=== PATIENT | male | born 2000 | race Caucasian/White ===

== ENCOUNTER 2019-06-10 00:16 | Inpatient (IN) ==
[2019-06-10] MEDS ORDERED: NS 1,000 ML ONE (00:30)
[2019-06-10] MEDS ORDERED: NS 1,000 ML IV ONE ×3 (00:33→02:14)
[2019-06-10] MEDS ORDERED: HUMULIN R IV ONE ×3 (00:35→04:18)
[2019-06-10 00:45] LABS: BE -17.3 mmoll (-3.0-3.0); BLOOD TYPE ARTERIAL; HCO3-(ACT) 11.4 mmoll (20.0-26.0); METHB 1.2 % (0.0-1.5); O2(CT) 22.6 mL/dL (15.0-23.0); O2HB 95.7 % (95.0-99.0); PCO2(98.6) 22 mmHg (35-45); PO2(98.6) 110 mmHg (60-100); SAMPLE BLOOD; SAO2 98.8 % (95.0-100.0); THB 16.7 g/dL (11.5-17.4)
[2019-06-10 00:46] LABS: URINE SOURCE CLEAN CATCH
[2019-06-10 00:47] LABS: ALLEN TEST NO; MODALITY ROOM AIR
[2019-06-10 00:48] LABS: BASO# 0.06 X1000 (0.0-0.2); BASO% 0.5 % (0.0-0.8); EOS# 0.07 X1000 (0.0-0.7); EOS% 0.5 % (0.0-10.0); HEMATOCRIT 46.2 % (42.0-52.0); HEMOGLOBIN 16.1 g/dL (14.0-18.0); IMM GRAN# 0.06 X1000 (0.0-0.04); IMM GRAN% 0.5 % (0.0-0.5); LYMPH# 3.92 X1000 (1.2-3.4); LYMPH% 30.5 % (20.5-51.1); MCH 29.6 PG (27-31); MCHC 34.8 g/dL (33-37); MCV 84.9 FL (81-99); MONO# 0.75 X1000 (0.11-0.59); MONO% 5.8 % (1.7-9.3); MPV 9.3 FL (7.4-10.4); NEUT% 62.2 % (42.2-75.2); PLT 397 X1000 (130-400); RBC 5.44 XMIL (4.7-6.1); RDW 11.9 % (11.5-14.5); WBC 12.86 X1000 (4.8-10.8)
[2019-06-10 00:49] LABS: BILIRUBIN URINE NEGATIVE (NEGATIVE); BLOOD URINE NEGATIVE (NEGATIVE); COLOR STRAW; GLUCOSE URINE >1000 mg/dL (NEGATIVE); KETONE URINE >150 mg/dL (NEGATIVE); LEUKOCYTES URINE NEGATIVE (NEGATIVE); NITRITE URINE NEGATIVE (NEGATIVE); PROTEIN URINE NEGATIVE (NEGATIVE); TURBIDITY URINE CLEAR (CLEAR); UROBILINOGEN URINE NORMAL (NORMAL)
[2019-06-10 00:50] LABS: UR EPITHELIAL CELLS <10 /HPF (<10); URINE BACTERIA NEGATIVE /HPF; URINE RBC <10 /HPF (<10); URINE WBC <10 /HPF (<10)
[2019-06-10 01:19] LABS: INR 0.95; PROTIME 13.1 Seconds (11.0-16.0); PTT 25.4 Seconds (22.3-41.8)
[2019-06-10 01:38] LABS: UR AMPHETAMINES QUAL NONE DETECTED (NONE DETECT); UR BARBITUATES QUAL NONE DETECTED (NONE DETECT); UR BENZODIAZEPIN QUAL NONE DETECTED (NONE DETECT); UR CANNABINOIDS QUAL NONE DETECTED (NONE DETECT); UR COCAINE QUAL NONE DETECTED (NONE DETECT); UR METHADONE QUAL NONE DETECTED (NONE DETECT); UR METHAMPHETAMINE QUAL NONE DETECTED (NONE DETECT); UR OPIATES QUAL NONE DETECTED (NONE DETECT); UR OXYCODONE QUAL NONE DETECTED (NONE DETECT); UR PCP QUAL NONE DETECTED (NONE DETECT); UR PROPOXYPHENE QUAL NONE DETECTED (NONE DETECT); UR TCA QUAL NONE DETECTED (NONE DETECT)
[2019-06-10 01:56] LABS: ESTIMATED GFR > 60
[2019-06-10 01:58] LABS: AGAP 35; ALBUMIN 4.6 g/dL (3.5-5.0); ALKALINE PHOSPHATASE 111 U/L (32-122); BUN 18 mg/dL (8-22); CALCIUM 10.1 mg/dL (8.8-10.2); CHLORIDE 87 mmol/L (98-107); COSMO 282; CREATININE 0.9 mg/dL (0.7-1.2); GOT 19 U/L (10-34); GPT 29 U/L (10-44); MAGNESIUM 1.8 mg/dL (1.5-2.7); POTASSIUM 4.5 mmol/L (3.5-5.1); SODIUM 130 mmol/L (136-145); TCO2 9 mmol/L (25-35); TOTAL PROTEIN 7.8 g/dL (6.3-8.3)
[2019-06-10 01:59] LABS: GLUCOSE 453 mg/dL (70-104)
[2019-06-10] MEDS ORDERED: ROCEPHIN 1 GM in NS 50 ML IV ONE (02:11)
[2019-06-10] MEDS ORDERED: D50W SYRINGE IV ONE (02:16)
[2019-06-10] MEDS ORDERED: ZOFRAN IV PRN ×2 (02:19→03:46)
[2019-06-10] MEDS ORDERED: D50W SYRINGE IV PRN ×3 (02:19→04:18)
--- NOTE | 2019-06-10 02:26 | PROVIDER DOCUMENTATION ---
This chart was entered by Tegan Garnica Scribe, acting as scribe for Vincent Farmer MD. HPI-General Adult - General Chief Complaint: DKA ALERT Stated Complaint: BLOOD SUGAR PROBLEMS Time Seen by Provider: 06/10/19 00:24 Source: patient, family Allergies/Adverse Reactions: Patient Allergies Allergy/AdvReac Type Severity Reaction Status Date / Time No Known Allergies Allergy Verified 06/10/19 00:37 Home Medications: Home Medication List Medication Instructions Recorded Confirmed Last Taken Type NK [No Home Medications] 06/10/19 06/10/19 Unknown History - History of Present Illness -Gen Adult Nature of Presenting Problems: s a 18 yr old male presenting with complaint of nausea, vomiting, weakness and elevated BGL. pt admits he has been out of his Tresiba and Novolog for 3 days, does not have insurance and can not afford his medications. pt hx of DKA Location of Pain/Injury: reports: generalized Pain Radiation: reports: no radiation Quality of Pain: reports: aching Severity: reports: moderate Onset/Duration: reports: 2 days ago Timing: reports: getting worse Context/Activities at Onset: reports: light activity Modifying Factors: improves with: nothing Associated Symptoms: reports: fatigue, genitourinary problems, malaise, muscle aches, nausea, shortness of breath, vomiting, weakness. denies: fever/chills Similar Symptoms Previously?: Yes Recently seen or treated by another doctor?: No Review of Systems - Adult - REVIEW OF SYSTEMS - ADULT Constitutional: reports: fatique. denies: chills, fever Eyes: reports: no symptoms reported Ears, Nose, Mouth & Throat: denies: ear pain, sinus problem, throat pain Cardiovascular: reports: no symptoms reported Respiratory: denies: cough, shortness of breath Gastrointestinal: reports: nausea, vomiting. denies: abdominal pain Genitourinary: reports: frequency. denies: dysuria, flank pain Musculoskeletal: reports: muscle aches, muscle weakness Integumentary: reports: no symptoms reported Neurological: denies: dizziness/vertigo, headache/migraines, syncope Psychiatric: reports: no symptoms reported Endocrine: reports: increased thirst, polyuria Hematologic/Lymphatic: reports: no symptoms reported Allergic/Immunologic: reports: no symptoms reported All Other Systems: Reviewed and Negative Past History - Adult - PAST MEDICAL HISTORY-ADULT Review of Records: reports: Old Records Reviewed, Nursing Assessment Review, Medications Reviewed, Social history reviewed & non-contributory. Major Childhood Illnesses: reports: denies history Cardiovascular: reports: denies history Respiratory: reports: denies history Gastrointestinal: reports: denies history Obstetrical/Gynecological: reports: denies history Genitourinary: reports: denies history Musculoskeletal: reports: denies history Neurological: reports: headaches/migraines Psychiatric: reports: depression Endocrine/Immune: reports: Diabetes Other Conditions: reports: denies history - PRIOR SURGERIES/PROCEDURES Surgical/Procedure History: reports: tonsillectomy, hernia repair, other (craniotomy) - IMMUNIZATION STATUS Childhood Immunizations: See Nurse Assessment Flu Vaccine: See Nurse Assessment - FAMILY HISTORY Family History: reviewed, not pertinent - SOCIAL HISTORY Smoking: other (vape) Substance Use: alcohol Alcohol Use Frequency: occasionally Living Situation: family Physical Exam-General - PHYSICAL EXAM-ADULT Initial Vital Signs Reviewed: Yes - CONSTITUTIONAL General Appearance: alert, no apparent distress, thin - EYES Eyes: PERRL/EOMI, other (fruity odor to breath) - HEAD, EARS, NOSE, MOUTH & THROAT HENMT: normocephalic/atraumatic, other (fruity odor to breath). negative: moist mucous membranes (dry oral mucosa) - NECK Neck: non-tender, full range of motion, supple, normal inspection - RESPIRATORY Respiratory: chest non-tender, lungs clear, normal breath sounds, increased rate - CARDIOVASCULAR Cardiovascular: normal peripheral pulses, tachycardia - GASTROINTESTINAL (ABDOMEN) Abdominal Exam: normal bowel sounds, non tender, soft - LYMPHATIC Lymphatic: no adenopathy - MUSCULOSKELETAL Back Exam: normal inspection, no CVA tenderness, no vertebral tenderness Extremity: normal range of motion, non-tender, normal gait, normal inspection - SKIN Integumentary: normal color, normal turgor, warm/dry - NEUROLOGIC Neurologic: grossly normal, no motor/sensory deficits - PSYCHIATRIC Psych/Mental Status: normal mood/affect Progress - PLAN OF CARE/RESULTS Progress/Plan/Lab Results: Vital Signs - 8 hr 06/10/19 00:20 Temperature 97.5 F L Pulse Rate 136 H Respiratory Rate 20 Blood Pressure 128/76 O2 Sat by Pulse Oximetry 98 Laboratory Results - last 24 hr 06/10/19 00:25 POC Glucose 405 H Orders Category Date Time Status Cardiac Monitoring NOW Care 06/10/19 00:40 Active FSBS/Accucheck Result NOW Care 06/10/19 00:28 Active FSBS/Accucheck Result Q1H Care 06/10/19 00:36 Active IV Insertion NOW Care 06/10/19 00:40 Active NEWS Score >or=5:Order NEWS Bundle S.O. NOW Care 06/10/19 00:33 Active Notify Provider of NEWS Score NOW Care 06/10/19 00:40 Active CHEST-1 VIEW [RAD] Stat Exams 06/10/19 00:40 Ordered ABG [RESP] Routine Lab 06/10/19 00:35 Ordered ACETONE SERUM [CHEM] Stat Lab 06/10/19 00:34 Ordered BLOOD CULTURE [BLDCUL] Stat Lab 06/10/19 00:40 Uncollected CBC WITH ELECTRONIC DIFF [HEME] Stat Lab 06/10/19 00:34 Ordered CK PROFILE [SP CHEM] Stat Lab 06/10/19 00:40 Ordered CMP [COMPREHENSIVE METABOLIC PANEL] [CHEM] Stat Lab 06/10/19 00:36 Ordered LACTATE, PLASMA [CHEM] Q3H Lab 06/10/19 00:42 Ordered LACTATE, PLASMA [CHEM] Q3H Lab 06/10/19 03:45 Uncollected LACTATE, PLASMA [CHEM] Q3H Lab 06/10/19 06:45 Uncollected PROTIME WITH INR [COAG] Stat Lab 06/10/19 00:40 Ordered PTT [COAG] Stat Lab 06/10/19 00:40 Ordered TROPONIN T HIGH SENSITIVITY Stat Lab 06/10/19 00:40 Ordered URINALYSIS W/POSS RFLX CULT [URINALYSIS] Stat Lab 06/10/19 00:40 Ordered 0.9% Sodium Chloride Inj [Ns] 1,000 ml Med 06/10/19 00:30 Discontinued .ROUTE As directed 0.9% Sodium Chloride Inj [Ns] 1,000 ml Med 06/10/19 00:33 Active IV 999 mls/hr 0.9% Sodium Chloride Inj [Ns] 1,000 ml Med 06/10/19 00:36 Active IV 999 mls/hr Insulin Human Regular [Humulin R] Med 06/10/19 00:35 Discontinued 12 unit IV NOW ONE Result Diagrams: 06/10/19 00:33 06/10/19 00:33 - EKG 1 Time of EKG reading by physician:: 00:37 EKG Read and Signed by:: Vincent Farmer EKG Interpretation (*Must complete 3 of following elements*): Abnormal (possible left atrial enlargement) Rate: 141 Rhythm: sinus tach [place]: normal QRS: normal TN Interval: normal ST Wave: normal - CONSULTS/PCP/HOSPITALIST Notification #1 *Consult/PCP/Hospitalist*: Dr. Simpson, hospitalist Time Discussed: 02:05 Reason/Comments: initiate DKA protocol with insulin drip Consult Disposition: Admit Departure - Departure Date of Disposition Decision: 06/10/19 Time of Disposition Decision: 02:24 DIAGNOSIS: DKA (diabetic ketoacidosis) Qualifiers: Diabetes mellitus type: type 2 Diabetes mellitus complication detail: without coma Qualified Code(s): E11.10 - Type 2 diabetes mellitus with ketoacidosis without coma Disposition: ADMITTED INPATIENT 09 Certified Medical Emergency: Emergent Condition: Stable Referrals and Follow-Ups: Ron Conner MD [Primary Care Provider] - - Critical Care Note This patient required my direct & personal management of CC.: No Total Time (mins): 110 Critical Care Statement: This patient required my direct personal management to treat or rule out processes, the absence of which, could potentiallly result in sudden, clinically significant life or limb threatening deterioration. Attestation - Physician/ IZABELLA Attestation Patient care was provided by Advanced Practice Provider:: No The physician spent face to face time with patient:: Yes Advanced Practice Provider documentation review:: Supervising physician onsite and consulted in the evaluation and care of this patient. The physician did have a face to face encounter with the patient. This chart was documented by the indicated scribe, (Tegan Garnica Scribe) and accurately reflects the services I performed and decisions made by me, Vincent Farmer MD, as attested by the provider's signature.
[2019-06-10] MEDS ORDERED: HUMULIN R 100 UNIT in NS 100 ML IV SCH ×3 (02:30→04:30)
[2019-06-10 02:46] LABS: HEMOGLOBIN A1C 12.9 % (4.8-6.0)
[2019-06-10] MEDS ORDERED: NS 100 ML ONE (02:47)
[2019-06-10] MEDS ORDERED: POTASSIUM CHLORIDE 20 MEQ/SWI 20 MEQ/100 ML IVPB IV PRN (04:18)
[2019-06-10] MEDS ORDERED: POTASSIUM CHLORIDE 10% LIQUID PO PRN (04:18)
[2019-06-10] MEDS ORDERED: D5 NS 1,000 ML IV PRN (04:18)
[2019-06-10] MEDS ORDERED: POTASSIUM CHLORIDE 40 MEQ/SWI 40 MEQ/100 ML IVPB IV PRN (04:18)
[2019-06-10] MEDS ORDERED: TYLENOL PO PRN (04:18)
[2019-06-10] MEDS: NS 1,000 ML IV SCH ×5 (04:53→16:45)
--- NOTE | 2019-06-10 04:54 | EKG Report ---
Test Performed on : 06/10/2019 00:36:24 AM Test Reason : tachy Blood Pressure : / mmHG Vent. Rate : 141 BPM Atrial Rate : 141 BPM P-R Int : 118 ms QRS Dur : 068 ms QT Int : 298 ms P-R-T Axes : 082 071 069 degrees QTc Int : 456 ms Sinus tachycardia. Possible Left atrial enlargement Borderline ECG No previous ECGs available Unconfirmed Result
[2019-06-10 05:01] LABS: ALLEN TEST YES; BE -12.7 mmoll (-3.0-3.0); BLOOD TYPE ARTERIAL; MODALITY ROOM AIR; PCO2(98.6) 25 mmHg (35-45); PO2(98.6) 193 mmHg (60-100); SAMPLE BLOOD; SAO2 99.2 % (95.0-100.0); THB 14.4 g/dL (11.5-17.4); pH(98.6) 7.29 (7.35-7.45)
[2019-06-10 05:14] LABS: AMYLASE 41 U/L (20-200); LIPASE 10 U/L (13-60)
[2019-06-10] MEDS ORDERED: SODIUM PHOSPHATE 30 MMOL in D5W 250 ML IV PRN (05:23)
[2019-06-10] MEDS ORDERED: MAGNESIUM SULFATE 2 GM/S.W.I. 2 GM/50 ML IVPB IV PRN (05:23)
--- NOTE | 2019-06-10 05:46 | Diag Imaging Result Doc PS360 ---
EXAM: CHEST-1 VIEW HISTORY: tachycardia TECHNIQUE: Single view COMPARISON: 09/12/2017 FINDINGS: The lungs are well expanded. The heart is not enlarged. The vessels are not distended. There are no infiltrates. No effusion identified. IMPRESSION: Negative exam. Electronically signed by Sanjiv Muhammad 06/10/2019 5:43 AM
[2019-06-10 05:55] LABS: ACETONE SERUM MODERATE (NEGATIVE)
[2019-06-10 06:33] LABS: HEMATOCRIT 37.6 % (42.0-52.0); HEMOGLOBIN 13.1 g/dL (14.0-18.0); MCH 29.4 PG (27-31); MCHC 34.8 g/dL (33-37); MCV 84.3 FL (81-99); MPV 8.9 FL (7.4-10.4); RBC 4.46 XMIL (4.7-6.1); RDW 11.7 % (11.5-14.5); WBC 13.01 X1000 (4.8-10.8)
[2019-06-10 06:33] LABS: AGAP 21; BUN 14 mg/dL (8-22); CALCIUM 8.1 mg/dL (8.8-10.2); CHLORIDE 105 mmol/L (98-107); COSMO 279; CREATININE 0.8 mg/dL (0.7-1.2); ESTIMATED GFR > 60; GLUCOSE 219 mg/dL (70-104); POTASSIUM 4.1 mmol/L (3.5-5.1); SODIUM 136 mmol/L (136-145); TCO2 10 mmol/L (25-35)
--- NOTE | 2019-06-10 07:16 | HISTORY AND PHYSICAL ---
PRIMARY CARE PHYSICIAN: None. CHIEF COMPLAINT: Feeling bad, and weakness. HISTORY OF PRESENTING ILLNESS: A 18-year-old male with a history of diabetes mellitus type 1, who had initially presented to [facility] with complaint of weakness, not feeling well. The patient apparently ran out of his insulin about several days ago. He was seen in the ED there. He was found to be in DKA and he was transferred to [facility] due to lack of ICU beds ICU beds that were available. At the time of my examination, patient denied any headache, fever, chills, chest pain, shortness of breath or weight changes. Just states that he feels bad and weak. PAST MEDICAL HISTORY: Include diabetes mellitus type 1. PAST SURGICAL HISTORY: Brain surgery and hernia repair. ALLERGIES: No known drug allergies. CURRENT MEDICATIONS: He was on insulin. SOCIAL HISTORY: He patient vapes/uses electronic cigarettes. Denies any history of alcohol or illicit drug use. FAMILY HISTORY: No history of coronary artery disease. REVIEW OF SYSTEMS: Fourteen point review of system is as in HPI. Other systems negative. PHYSICAL EXAMINATION: GENERAL: Cooperative, friendly male. He is resting more comfortably now. VITAL SIGNS: Temperature 97.5 degrees, pulse 136, respirations 20, blood pressure 128/76. HEENT: Atraumatic, normocephalic. Extraocular movements intact. PERRLA. NECK: No masses. CHEST: Clear to auscultation. CARDIOVASCULAR: Regular rate and rhythm. S1,S2. ABDOMEN: Soft positive bowel sounds. EXT: No edema. NEUROLOGIC: Awake, alert, oriented x3. GENITOURINARY: No bladder distention. SKIN: Has poor turgor. LABORATORIES AND STUDIES: PH is 7.20, pCO2 is 22. Toxicology, small acetones. WBC 12.86, hemoglobin 16.1, hematocrit 46.2, platelets 397,000. BMP Sodium 130, potassium 4.5, chloride 87, CO2 is 9, BUN is 18, creatinine 0.9, glucose is 453. ASSESSMENT: A 18-year-old male with a history of type 1 diabetes mellitus who initially presented to [facility] with a complaint of feeling bad and weak is. He had laboratories drawn and he was found to be in diabetic ketoacidosis. Apparently he had ran out of his insulin. He was started on insulin drip there and transferred to [facility] due to lack of ICU beds. Diabetic ketoacidosis. PLAN: 1. The patient is admitted to ICU. 2. I will continue patient on insulin drip per DKA protocol. 3. Continue with IV fluid hydration. 4. We will continue to follow, reassess, make further recommendation based on patient's clinical course. cc: Brett Simpson MD
[2019-06-10 12:00] LABS: AGAP 10; BUN 11 mg/dL (8-22); CALCIUM 7.6 mg/dL (8.8-10.2); CHLORIDE 108 mmol/L (98-107); COSMO 278; CREATININE 0.6 mg/dL (0.7-1.2); ESTIMATED GFR > 60; GLUCOSE 187 mg/dL (70-104); SODIUM 137 mmol/L (136-145); TCO2 19 mmol/L (25-35)
[2019-06-10 13:08] LABS: UR AMPHETAMINES QUAL NONE DETECTED (NONE DETECT); UR BARBITUATES QUAL NONE DETECTED (NONE DETECT); UR BENZODIAZEPIN QUAL NONE DETECTED (NONE DETECT); UR CANNABINOIDS QUAL NONE DETECTED (NONE DETECT); UR COCAINE QUAL NONE DETECTED (NONE DETECT); UR METHADONE QUAL NONE DETECTED (NONE DETECT); UR OPIATES QUAL NONE DETECTED (NONE DETECT); UR OXYCODONE QUAL NONE DETECTED (NONE DETECT); UR PCP QUAL NONE DETECTED (NONE DETECT)
[2019-06-10] MEDS: HUMULIN R SUBQ SCH ×2 (16:31→20:23)
--- NOTE | 2019-06-10 18:54 | PROGRESS NOTE ---
DATE: 06/10/2019 SUBJECTIVE: Mr. So was admitted to the ICU for DKA protocol. He seems better. His blood sugars have dropped down. He is hungry, so I plan to advance him to a diabetic diet. OBJECTIVE: Vital signs: He remains afebrile, temperature 98.8 degrees, pulse 77, respirations 18, blood pressure 122/79. Eyes: Pupils are equal and round. Lungs: Clear in all lung gentile. Cardiovascular: Regular rhythm and rate without murmur or S3. Urine output was 760 mL yesterday and good urine output today thus far. Blood sugars 189 and 290. ASSESSMENT AND PLAN: 1. Diabetic ketoacidosis. He has type 1 diabetes mellitus. Initially was seen at [place], feeling bad and weak. On laboratories, found to have significant acidosis. His acid gap has closed. We will advance him to a diabetic diet and put him on patterned sugars. 2. Electrolytes: Sodium 137, potassium 4.0, chloride 108, BUN 11, creatinine 0.6. Blood sugars 169, 187, 149, and 290. Phosphorus was 2.4. cc: Tone Aguayo MD
[2019-06-11] MEDS: NS 1,000 ML IV SCH (04:24)
[2019-06-11] MEDS: HUMULIN R SUBQ SCH ×3 (06:00→13:15)
[2019-06-11 06:43] LABS: AGAP 11; BUN 13 mg/dL (8-22); CALCIUM 7.9 mg/dL (8.8-10.2); CHLORIDE 101 mmol/L (98-107); COSMO 289; CREATININE 0.6 mg/dL (0.7-1.2); ESTIMATED GFR > 60; GLUCOSE 375 mg/dL (70-104); MAGNESIUM 1.8 mg/dL (1.5-2.7); POTASSIUM 4.3 mmol/L (3.5-5.1); SODIUM 137 mmol/L (136-145); TCO2 25 mmol/L (25-35)
[2019-06-11 16:32] VITALS: BP 116/76
--- NOTE | 2019-06-11 16:48 | DISCHARGE SUMMARY ---
ADMISSION DATE: 06/10/2019 DISCHARGE DATE: 06/11/2019 HISTORY: He is a patient of Dr. Ron Conner. He came in stating he was feeling bad with weakness. This is a 18-year-old male with history of diabetes mellitus type 1, who initially presented to [facility] complaining of weakness, not feeling well and he ran out of his insulin several days ago. Seen in the emergency room. He was found to be in DKA and transferred to [facility] to the ICU, put on a DKA protocol. We gave him fluids and some IV insulin. PAST MEDICAL HISTORY: He has got diabetes mellitus type 1 and he has had brain surgery in the past and hernia repair in the past. ALLERGIES: No known drug allergies. LABS: On presentation, white count was 12,860, hematocrit 46, platelet count 397,000. His electrolytes: Sodium was 137, potassium 4.0, chloride 108, BUN 11, creatinine 0.6, bicarb was 19, anion gap was 10. HOSPITAL COURSE: Blood sugars came down to below 200. He was changed to subcutaneous insulin. His electrolytes and potassium were replenished and he was able to eat a diabetic diet, tolerating well. Anion gap closed. His bicarb was 25 and he wanted to go home. So, plan to discharge him home on his insulin. We will give him a prescription. He said he is on Tresiba and if I do not know if he has other insulin as well. We will get that set up for him. He is to follow up with his primary care physician. cc: Tone Aguayo MD
== END 2019-06-11 17:50 | disposition home or self-care (01) | DRG 639 ==
LOC: P.ED 00:16 → SUATTDRO 02:45 → ICU 02:45
PROVIDERS: ATTEND Emergency Medicine